=== PATIENT | female | born 1955 | race Two or more races ===

== ENCOUNTER 2021-11-29 06:08 | Observation (INO) ==
--- NOTE | 2021-10-30 11:30 | PAT Medication Instructions ---
Medication Instructions Date of Service October 30, 2021 Home Medications Culturelle Probiotic-Multivit 1 tab PO QAM ashwagandha root extract 300 mg capsule 300 mg PO QAM bupropion HCl 150 mg 24 hr tablet, extended release 150 mg PO QPM calcium 500 mg tablet 500 mg PO QAM cholecalciferol (vitamin D3) 125 mcg (5,000 unit) tablet (Vitamin D3) 125 mcg PO QAM coenzyme Q10 200 mg capsule (Co Q-10) 200 mg PO QAM conjugated estrogens 0.625 mg/gram vaginal cream (Premarin) 0.625 mg VAGINAL QPM cyanocobalamin (vitamin B-12) 1,000 mcg tablet (Vitamin B-12) 1,000 mcg PO QAM ezetimibe 10 mg tablet 10 mg PO HS fenofibrate nanocrystallized 145 mg tablet 145 mg PO HS fluconazole 200 mg tablet 200 mg PO QAM fluoxetine 20 mg tablet 20 mg PO HS gabapentin 300 mg tablet 300 mg PO HS hydrocodone 5 mg-acetaminophen 325 mg tablet 0.5 tab PO QID PRN hydroxyzine pamoate 25 mg capsule (Vistaril) 25 mg PO HS PRN lansoprazole 30 mg capsule,delayed release 30 mg PO HS meclizine 25 mg tablet 25 mg PO HS mv-min-vit C-ascorb Vs-Pnr-Sbu-herb #124 334 mg-1.7 mg chewable tablet (Airborne (ascorbate sodium)) 1 tab PO QAM vit 112-iron 3.33 mg-folate 0.33 [id number] chew tablet (Vitafol Gummies) 3 tab PO QAM trazodone 50 mg tablet 25 mg PO HS PRN vitamin C 500 mg-multivitamin with minerals chewable tablet (Emergen-C) 1 tab PO QAM STOP taking 2 weeks before surgery (or as soon as possible if surgery is within 2 weeks) ashwagandha root extract 300 mg capsule 300 mg PO QAM coenzyme Q10 200 mg capsule (Co Q-10) 200 mg PO QAM STOP taking 48 hours before surgery fenofibrate nanocrystallized 145 mg tablet 145 mg PO HS DO NOT take the morning of surgery Culturelle Probiotic-Multivit 1 tab PO QAM calcium 500 mg tablet 500 mg PO QAM cholecalciferol (vitamin D3) 125 mcg (5,000 unit) tablet (Vitamin D3) 125 mcg PO QAM cyanocobalamin (vitamin B-12) 1,000 mcg tablet (Vitamin B-12) 1,000 mcg PO QAM fluconazole 200 mg tablet 200 mg PO QAM Airborne (ascorbate sodium) 1 tab PO QAM Vitafol Gummies 3 tab PO QAM vitamin C 500 mg-multivitamin with minerals chewable tablet (Emergen-C) 1 tab PO QAM Take morning of surgery With a small sip of water, OTHERWISE NOTHING TO EAT OR DRINK AFTER MIDNIGHT: hydrocodone 5 mg-acetaminophen 325 mg tablet 0.5 tab PO QID PRN (okay to take up to 4 hours prior to surgery if needed) Take evening before surgery bupropion HCl 150 mg 24 hr tablet, extended release 150 mg PO QPM conjugated estrogens 0.625 mg/gram vaginal cream (Premarin) 0.625 mg VAGINAL QPM ezetimibe 10 mg tablet 10 mg PO HS fluoxetine 20 mg tablet 20 mg PO HS gabapentin 300 mg tablet 300 mg PO HS hydrocodone 5 mg-acetaminophen 325 mg tablet 0.5 tab PO QID PRN (if needed) hydroxyzine pamoate 25 mg capsule (Vistaril) 25 mg PO HS PRN (if needed) lansoprazole 30 mg capsule,delayed release 30 mg PO HS meclizine 25 mg tablet 25 mg PO HS trazodone 50 mg tablet 25 mg PO HS PRN (if needed) Other Notes If you have any questions please call us at [phone] or [phone] or [phone] or [phone]
--- NOTE | 2021-10-31 11:25 | Anesthesiology Consultation ---
Date of Service October 31, 2021 Assessment & Plan (1) Encounter for pre-operative examination: - COVID screening: Per assessment on 10/31/2021: Travel screen negative, no known COVID-19 positive contacts or current COVID-19 related symptoms in past 2 weeks. Surgeon arranging preop COVID testing, scheduled 11/27/2021. Awaiting results. Chart Review Chart Review: Acceptable Risk for Surgery and Patient seen in Pre Admission Testing Teaching & Discussion Pre-Anesthesia Teaching/Discussion Notes: Instructed NPO after midnight before surgery, except medications with 15 cc of water. Medication instructions provided according to the PAT guidelines. History Surgery Operation Date: 11/29/21 07:00 Proposed Procedures p Right Reverse Total Shoulder Arthroplasty - Arley Siegel, Height/Weight Height: 5 ft 2 in Weight: 71.9 kg Allergies Allergy/AdvReac Type Severity Reaction Status Date / Time No Known Allergies Allergy Verified 10/30/21 10:32 Medications Home Medications Medication Instructions Recorded Confirmed Last Taken Culturelle Probiotic-Multivit 1 tab PO QA 10/30/21 10/30/21 Unknown ashwagandha root extract 300 mg 300 mg PO QAM 10/30/21 10/30/21 Unknown capsule bupropion HCl 150 mg 24 hr tablet, 150 mg PO QPM 10/30/21 10/30/21 Unknown extended release calcium 500 mg tablet 500 mg PO QAM 10/30/21 10/30/21 Unknown cholecalciferol (vitamin D3) 125 125 mcg PO QAM 10/30/21 10/30/21 Unknown mcg (5,000 unit) tablet (Vitamin D3) coenzyme Q10 200 mg capsule (Co 200 mg PO QAM 10/30/21 10/30/21 Unknown Q-10) conjugated estrogens 0.625 mg/gram 0.625 mg VAGINAL QPM 10/30/21 10/30/21 Unknown vaginal cream (Premarin) cyanocobalamin (vitamin B-12) 1,000 mcg PO QAM 10/30/21 10/30/21 Unknown 1,000 mcg tablet (Vitamin B-12) ezetimibe 10 mg tablet 10 mg PO HS 10/30/21 10/30/21 Unknown fenofibrate nanocrystallized 145 145 mg PO 10/30/21 10/30/21 Unknown mg tablet fluconazole 200 mg tablet 200 mg PO QA 10/30/21 10/30/21 Unknown fluoxetine 20 mg tablet 20 mg PO HS 10/30/21 10/30/21 Unknown gabapentin 300 mg tablet 300 mg PO HS 10/30/21 10/30/21 Unknown hydrocodone 5 mg-acetaminophen 325 0.5 tab PO QID PRN 10/30/21 10/30/21 Unknown mg tablet hydroxyzine pamoate 25 mg capsule 25 mg PO HS PRN 10/30/21 10/30/21 Unknown (Vistaril) lansoprazole 30 mg capsule,delayed 30 mg PO HS 10/30/21 10/30/21 Unknown release meclizine 25 mg tablet 25 mg PO HS 10/30/21 10/30/21 Unknown mv-min-vit C-ascorb 1 tab PO QAM 10/30/21 10/30/21 Unknown Eb-Sfg-Ksk-herb #124 334 mg-1.7 mg chewable tablet (Airborne (ascorbate sodium)) vit 112-iron 3.33 3 tab PO QAM 10/30/21 10/30/21 Unknown mg-folate 0.33 [id number]-exv chew tablet (Vitafol Gummies) trazodone 50 mg tablet 25 mg PO HS PRN 10/30/21 10/30/21 Unknown vitamin C 500 mg-multivitamin with 1 tab PO QAM 10/30/21 10/30/21 Unknown minerals chewable tablet (Emergen-C) Past Medical History Medical History (Updated 10/31/21 @ 15:16 by Yumi Rodgers PA-C) Hx of non-Hodgkin's lymphoma 07/2019- s/p parotidectomy and radiation 10/2019, no chemo-[facility] oncology-last appt 07/2020, denies current Tx Hyperlipemia Patient denies h/o stroke, seizures, heart attack, heart failure, DM, HTN, blood clots or blood transfusions. Exercise / Class Metabolic Activity II 4-5 Yardwork/Stairs/Walk up hill (denies CP or SOB with 1 FOS) Past Family History Family History (Updated 10/31/21 @ 11:38 by Yumi Rodgers PA-C) Mother Diabetes Past Surgical History Surgical History H/O esophagogastroduodenoscopy History of lumbar surgery 1990 Hx of parotidectomy DUE TO NON HODGKINS LYMPHOMA S/P arthroscopy of left shoulder S/P colonoscopy S/P rotator cuff surgery RIGHT Past Anesthesia History No Hx of Anesthesia Complications and No Family Hx of Anesthesia Complications History of PONV No Hx of PONV and No Hx of Motion Sickness Social History Smoking Status: Never smoker Do You Dip or Chew Tobacco: No Hx Alcohol Use: Yes Alcohol type: beer and hard liquor alcohol intake frequency: a few times a week Hx Substance Use: Yes (SMOKES NIGHTLY-ADVISED) substance use type: marijuana Review of Systems Occasional reflux with citrus products/foods. Patient denies chest pain, shortness of breath, dyspnea on exertion, snoring, witnessed apneas, fever, chills, cough, wheezing, or palpitations. Physical Exam Vital Signs Vitals BP 143/95 P 65 TEMP 99.3 SP02 97% on RA RESP 17 Physical Full cervical extension range of motion without pain TMD 3.5 finger breaths Mallampati Score 2 Dentition: intact, several chipped teeth back upper left and lower right; denies missing and loose teeth, caps/crowns, implants or bridges Lungs: normal respiratory effort. Clear throughout to auscultation, no adventitious breath sounds Cardiac: regular rate and rhythm, no murmurs noted Carotid arteries: negative bruit bilat Lab Results Anesthesia Preop Results Results Anesthesia Widget: WBC 8.08 K/uL (4.8-10.8) 10/31/21 Hgb 12.1 g/dL (12.0-16.0) 10/31/21 Hct 37.3 % (37-47) 10/31/21 Plt 359 K/uL (130-400) 10/31/21 Na 139 mmol/L (136-145) 10/31/21 K 4.3 mmol/L (3.5-5.1) 10/31/21 Cl 104 mmol/L (98-107) 10/31/21 CO2 29 mmol/L (21-32) 10/31/21 BUN 21 mg/dl (6-23) 10/31/21 Creat 0.88 mg/dl (0.6-1.2) 10/31/21 Glucose Level 90 mg/dl (70-99(Fasting)) 10/31/21 PT 10.8 Seconds (9.0-12.0) 10/31/21 PTT 30.5 Seconds (21.0-31.0) 10/31/21 INR 1.0 (0.9-1.1) 10/31/21 Blood Type O Positive 10/31/21 Antibody Screen NEGATIVE 10/31/21 Testing Electrocardiogram Date: 10/31/21 Lung volumes are normal. Lungs are clear. There is no pneumothorax or pleural effusion. Cardiac size is normal. Mediastinal contours are normal. There is no evidence for pulmonary edema. IMPRESSION: No acute cardiopulmonary findings. Chest X-Ray Date: 10/31/21 NSR, rate 62 bpm
--- NOTE | 2021-11-28 12:06 | History & Physical Report ---
Date of Service November 28, 2021 Assessment & Plan (1) Rotator cuff tear, right: We will proceed with a right reverse shoulder arthroplasty. Postoperatively she will be placed in a sling and kept overnight in the hospital for postoperative medical management. She plans to have the hospital arrange physical therapy upon discharge. History of Present Illness Chief Complaint: Cuff tear arthropathy of the right shoulder. Primary Care Provider: NO PCP Carolyn is a pleasant 65-year-old female who underwent a right shoulder rotator cuff repair by Dr. Downs about a year ago. Unfortunately, she is not doing well. She still has a lot of pain in her shoulder. She had an MRI of her right shoulder back in July which showed a re-tear of the rotator cuff. She was thinking of living with it for a little bit and having a reverse shoulder arthroplasty done in the fall. Unfortunately, she has had an acute exacerbation of her right shoulder pain. She has difficulty time doing anything away from her body or up overhead. She cannot sleep at night. She has severe shoulder pain at this time.After failing conservative treatment, she has elected proceed with a right reverse shoulder arthroplasty.. Allergies Allergy/AdvReac Type Severity Reaction Status Date / Time No Known Allergies Allergy Verified 10/30/21 10:32 Home Medications Medication Instructions Recorded Confirmed Type Culturelle Probiotic-Multivit 1 tab PO QAM 10/30/21 10/30/21 History ashwagandha root extract 300 mg 300 mg PO QAM 10/30/21 10/30/21 History capsule bupropion HCl 150 mg 24 hr tablet, 150 mg PO QPM 10/30/21 10/30/21 History extended release calcium 500 mg tablet 500 mg PO QAM 10/30/21 10/30/21 History cholecalciferol (vitamin D3) 125 125 mcg PO QAM 10/30/21 10/30/21 History mcg (5,000 unit) tablet (Vitamin D3) coenzyme Q10 200 mg capsule (Co 200 mg PO QAM 10/30/21 10/30/21 History Q-10) conjugated estrogens 0.625 mg/gram 0.625 mg VAGINAL QPM 10/30/21 10/30/21 Hist ory vaginal cream (Premarin) cyanocobalamin (vitamin B-12) 1,000 mcg PO QAM 10/30/21 10/30/21 History 1,000 mcg tablet (Vitamin B-12) ezetimibe 10 mg tablet 10 mg PO HS 10/30/21 10/30/21 History fenofibrate nanocrystallized 145 145 mg PO HS 10/30/21 10/30/21 History mg tablet fluconazole 200 mg tablet 200 mg PO QAM 10/30/21 10/30/21 History fluoxetine 20 mg tablet 20 mg PO HS 10/30/21 10/30/21 History gabapentin 300 mg tablet 300 mg PO HS 10/30/21 10/30/21 History hydrocodone 5 mg-acetaminophen 325 0.5 tab PO QID PRN 10/30/21 10/30/21 History mg tablet hydroxyzine pamoate 25 mg capsule 25 mg PO HS PRN 10/30/21 10/30/21 History (Vistaril) lansoprazole 30 mg capsule,delayed 30 mg PO HS 10/30/21 10/30/21 History release meclizine 25 mg tablet 25 mg PO HS 10/30/21 10/30/21 History mv-min-vit C-ascorb 1 tab PO QAM 10/30/21 10/30/21 History Gm-Ect-Hqy-herb #124 334 mg-1.7 mg chewable tablet (Airborne (ascorbate sodium)) vit 112-iron 3.33 3 tab PO QAM 10/30/21 10/30/21 History mg-folate 0.33 [id number]-ytq chew tablet (Vitafol Gummies) trazodone 50 mg tablet 25 mg PO HS PRN 10/30/21 10/30/21 History vitamin C 500 mg-multivitamin with 1 tab PO QAM 10/30/21 10/30/21 History minerals chewable tablet (Emergen-C) Past Med/Surg History Medical History Hx of non-Hodgkin's lymphoma 07/2019- s/p parotidectomy and radiation 10/2019, no chemo-[facility] oncology-last appt 07/2020, denies current Tx Hyperlipemia Surgical History H/O esophagogastroduodenoscopy History of lumbar surgery 1990 Hx of parotidectomy DUE TO NON HODGKINS LYMPHOMA S/P arthroscopy of left shoulder S/P colonoscopy S/P rotator cuff surgery RIGHT Family History Mother Diabetes Social History Smoking Status: Never smoker Second Hand Exposure: No; Hx Alcohol Use: Yes Alcohol type: beer and hard liquor Hx Substance Use: Yes (SMOKES NIGHTLY-ADVISED) Preferred Language: Lithuanian Communication Ability: Effective Fashion Photographer Required: No Beliefs That Will Affect Care: None Current Living Situation: Significant Other Feels Safe at Home: Yes Assistive Devices: Glasses Review of Systems All systems reviewed & are unremarkable except as noted in HPI & below. Physical Exam On physical examination the right shoulder, she has about 80 degrees of elevation and 80 degrees of abduction. She has 4 out of 5 motor strength throughout. Constitutional WD/WN, vitals as above Eyes PERRL, conjunctivae normal, anicteric sclerae ENMT external ear and nose normal, oropharynx normal Neck trachea midline, no thyromegaly Respiratory normal respiratory effort Cardiovascular RRR, no murmur, no edema Gastrointestinal (Abdomen) normal bowel sounds, soft, nontender, no hepatosplenomegaly Psychiatric A+Ox3, euthymic affect Results & Data Results & Data Laboratory Results . Diagnostic Findings X-rays of the right shoulder show signs of progressive osteoarthritis of the right humeral head. MRI of the right shoulder shows a complete retear of the rotator cuff with osteoarthritis of the humeral head. PG Care Time/CCT Total # of Minutes Spent Total Time Spent with Patient: Total time spent is greater than 50% in coordination of care (as documented) at patient's floor/unit and/or counseling patient: Coding Level of Care Code None Diagnoses Rotator cuff tear, right M75.101
[~2021-11-29 06:08] MED LIST: ACETAMINOPHEN 500 MG TAB PO SCH; GABAPENTIN 300 MG CAP PO SCH; Ketorolac (*for OR use only*) 30 MG, dexAMETHasone 4 MG, KETAMINE HCL (**OR use only) 1... INFIL SCH; LR 15ML/HR IV SCH; LR 60ML/HR IV SCH; TRANEXAMIC ACID 1,000 MG **IV Intra-op IV SCH; TRANEXAMIC ACID 1,000 MG **IV Pre-op IV SCH; ceFAZolin 2000MG 2,000 MG/15 ML SYR IV SCH; dexAMETHasone 4 MG TAB PO SCH
--- NOTE | 2021-11-29 06:24 | History & Physical Bridge Note ---
Date of Service November 29, 2021 History & Physical Bridge Note I have examined the patient, reviewed the History & Physical and in the interval since the performance of the History & Physical I have noted the following changes of clinical significance: no changes noted
[2021-11-29] MEDS ORDERED: BUPIVACAINE 0.25% 30 ML VIAL ONE (07:33)
[2021-11-29] MEDS ORDERED: MIDAZOLAM HCL 1 MG/ML 2ML VIAL ONE (08:25)
[2021-11-29] MEDS ORDERED: ONDANSETRON INJ 2 MG/ML 2 ML VIAL IV PRN ×2 (08:48→11:48)
[2021-11-29] MEDS ORDERED: fentaNYL citrate 100 MCG/2 ML VIAL IV PRN (08:48)
[2021-11-29] MEDS ORDERED: ePHEDrine sulfate 50 MG/ML AMP IV PRN (08:48)
[2021-11-29] MEDS ORDERED: ATROPINE SULFATE 0.1 MG/ML 10ML SYR IV PRN (08:48)
[2021-11-29] MEDS ORDERED: ORTHO JOINT ANESTHETIC ONE (09:03)
[2021-11-29] MEDS ORDERED: fentaNYL citrate 100 MCG/2 ML VIAL ONE (09:20)
[2021-11-29] MEDS ORDERED: PROPOFOL IV EMULSION 10 MG/ML 20 ML VIAL IV ONE (09:46)
[2021-11-29] MEDS ORDERED: LIDOCAINE 2% MPF LOCAL 5 ML VIAL INFIL ONE (09:46)
[2021-11-29] MEDS ORDERED: ePHEDrine sulfate 50 MG/ML AMP ONE (09:46)
--- NOTE | 2021-11-29 10:20 | Operative Report ---
PG Post Operative Report Pre & Post Diagnosis Operation Date: 11/29/21 08:50 Pre-Op Diagnosis: Cuff tear arthropathy of the right shoulder with tendinopathy long head of biceps tendon Post-Op Diagnosis: Cuff tear arthropathy of the right shoulder with tendinopathy long head of the biceps tendon I identified the patient and participated in the time-out.: Yes Procedure Operation Date: 11/29/21 08:50 Actual Procedures p Right Reverse Total Shoulder Arthroplasty(Right) with open biceps tenodesis as a distinct and separate procedure (modifier 59)- Arley Siegel DO Surgeon Arley Siegel DO Cost Estimating Engineer Arley Jacob PAC Estimated Blood Loss 150 Findings Consistent with Post-Op Diagnosis Specimens Right humeral head Complications none Disposition Disposition: Recovery Room Description of Procedure A CPT code modifier 59: The long head of the biceps tendon was enlarged and inflamed consistent with tendinopathy. A tenodesis was opted. This was a separate and distinct portion of the procedure. For these reasons, a CPT code modifier 59 will be added to this case. Implants used: I used a Biomet Comprehensive reverse total shoulder arthroplasty system with a size 12 press fit micro humeral stem, a standard humeral tray and a standard humeral bearing, a 25 mm small augment baseplate with a 6.5 mm central screw and superior and inferior locking screws, and a size 36 mm eccentric glenosphere. Carolyn arrived at [facility] for the above procedure. She was seen in the preoperative holding area and the operative extremity was identified and signed. She was given a preoperative antibiotic, TXA, and an interscalene nerve block. She was taken back to the operating room, laid on table in supine position, and put under general anesthesia. She was then put into the beachchair position. The shoulder was then prepped and draped in sterile fashion. A timeout was done and the patient and the operative extremity was properly identified. A deltopectoral approach was used. Dissection was taken down through the fascia and the deltoid was retracted laterally and the conjoined tendon was retracted medially. The anterior shoulder was exposed. The biceps groove was opened up and the biceps tendon was examined extensively. The biceps tendon demonstrated enlargement and inflammatory changes consistent with longstanding inflammation in the context of osteoarthritis and cuff arthropathy. The long head of the biceps tendon was then tenodesed to the upper border of the pectoralis major. This was a separate and distinct portion of the procedure. The subscapularis was then directly released off the lesser tuberosity with a peel technique. The inferior capsule was released and the humeral head was dislocated. A canal finding reamer was sent down the center of the humeral canal. Sequential reaming up to a size 12 reamer was done. Off that reamer, a proximal humeral resection guide was placed. The proximal humerus was resected at 135 of inclination and 25 of retroversion. Osteophytes were then removed and the glenoid was exposed. Time was spent doing a complete capsular and labral release. The glenoid guide was then placed in the inferior aspect of the glenoid. A 3.2 mm Steinmann pin was then placed into the glenoid vault at 10 of inclination. The glenoid baseplate was then reamed. The final size 25 mm small augment baseplate was then impacted in the place. A 6.5 mm central screw was then placed followed by superior and inferior locking screws. A 36 mm eccentric glenosphere was then impacted into place. Surrounding soft tissues were then injected with 100 cc an orthopedic pain control cocktail. The proximal humerus was then exposed. Sequential broaching of the humerus up to a size 12 broach was done. Off that broach a standard humeral tray was trialed. The shoulder was then reduced, brought through a full range of motion, and felt to be stable. The shoulder was then dislocated and the broach was removed. The final size 12 micro press-fit humeral stem was then impacted into place. A standard humeral bearing was then snapped onto a standard humeral tray. The humeral tray was then impacted onto the humeral stem. The shoulder was once again reduced, brought through a full range of motion, and felt to be stable. The subscapularis was then tenodesed back to the lesser tuberosity with transosseous FiberWire sutures and side to side sutures with the arm in 45 of external rotation. A dilute betadyne lavage was then done for 3 minutes. The joint was then irrigated with normal saline solution. Hemostasis was obtained. The inter doreen was closed with 2-0 Vicryl suture. The skin was then closed with 2-0 Vicryl and jammie. A Silverlon dressing was placed and the arm was rested in a regular arm sling. She was then extubated and transferred to a hospital bed. She taken to the postanesthesia care unit in stable condition. She tolerated the procedure well. Arley Jacob PA-C, was present for the entire procedure. He was critical for patient positioning, prepping, draping, retraction exposure, wound closure and application of sterile dressing. I attest to the content of the Intraoperative Record and any orders documented therein. Any exceptions are noted below.
--- NOTE | 2021-11-29 11:31 | XRay Report ---
XR shoulder RT min 2V routine HISTORY: 66 years-old Female Post shoulder surgery right shoulder total joint arthroplasty COMPARISON: None TECHNIQUE: 2 views of the right shoulder FINDINGS: Reverse right shoulder total joint arthroplasty. Overlying skin jammie are noted along with expected postoperative soft tissue swelling with deep tissue air. Moderate AC joint osteoarthritis. No acute fracture, dislocation or unexpected opaque foreign body. Imaged lung gallego appear clear. IMPRESSION: Right shoulder total joint arthroplasty with expected postoperative changes. ACT 112: Negative or not required by law. The above report was generated using voice recognition software. It may contain grammatical, syntax o r spelling errors. Electronically signed by: Jean-Claude Zaldivar M.D. 11/29/2021 11:30 AM
[2021-11-29] MEDS ORDERED: HYDROmorphone INJ 0.5 MG/0.5 ML SYR IV PRN (11:48)
[2021-11-29] MEDS ORDERED: METOCLOPRAMIDE HCL INJ 5 MG/ML 2 ML VIAL IV PRN (11:48)
[2021-11-29] MEDS ORDERED: traZODone HCL 50 MG TAB PO PRN (11:48)
[2021-11-29] MEDS ORDERED: hydrOXYzine HCl 25 MG TAB PO PRN (11:48)
[2021-11-29] MEDS ORDERED: oxyCODONE HCL IR 5 MG TAB (IMMEDIATE RELEASE) PO PRN (11:48)
[2021-11-29] MEDS ORDERED: NALOXONE HCL 0.4 MG/1 ML VIAL/CARP IV PRN (11:48)
[2021-11-29] MEDS ORDERED: bisacodyL 10 MG SUPP PR PRN (11:48)
[2021-11-29] MEDS ORDERED: MAGNESIUM HYDROXIDE SUSP 30 ML UDC PO PRN (11:48)
--- NOTE | 2021-11-29 13:34 | Anesthesiology Progress Note ---
Date of Service November 29, 2021 Anesthesia Post Procedure Vital Signs Vital Signs: Temp Pulse Pulse Resp BP Pulse Ox 11/29/21 13:25 36.6 C 85 14 101/65 92 11/29/21 12:30 36.6 C 82 18 113/71 92 11/29/21 11:49 36.4 C L 76 16 118/82 92 11/29/21 11:24 36.7 C 75 16 117/75 91 11/29/21 11:05 36.3 C L 74 16 121/72 96 11/29/21 10:55 75 16 133/67 95 11/29/21 10:45 74 16 119/74 97 11/29/21 10:36 36.3 C L 80 16 133/73 98 11/29/21 06:35 37 C 65 18 128/75 96 Transfer of Care Handoff Completed per policy Notes Mental Status: alert / awake / arousable Patient Amnestic to Procedure: Yes Nausea / Vomiting: adequately controlled Pain: adequately controlled Airway Patency, RR, SpO2: stable & adequate BP & HR: stable & adequate Hydration State: stable & adequate Anesthetic Complications: no major complications apparent Notes: block working well in pacu
[2021-11-29] MEDS: SODIUM CHLORIDE 0.9% 1000ML 1,000 ML IV SCH ×2 (14:15→22:54)
[2021-11-29] MEDS: ACETAMINOPHEN 500 MG TAB PO SCH ×2 (14:23→21:40)
[2021-11-29] MEDS: KETOROLAC 30 MG/ML VIAL IV SCH ×2 (14:23→19:04)
[2021-11-29] MEDS: ceFAZolin 2000MG 2,000 MG/15 ML SYR IV SCH (17:15)
[2021-11-29] MEDS: DOCUSATE SODIUM 100 MG CAP PO SCH (20:10)
[2021-11-29] MEDS ORDERED: PANTOprazole 40 MG TAB PO SCH (21:00)
[2021-11-29] MEDS ORDERED: MECLIZINE HCL 25 MG TAB PO SCH (21:00)
[2021-11-29] MEDS ORDERED: buPROPion XL 150 MG TABCR PO SCH (21:00)
[2021-11-29] MEDS ORDERED: FENOFIBRATE NANOCRYSTALLIZED 145 MG TABLET PO SCH (21:00)
[2021-11-29] MEDS ORDERED: FLUoxetine HCL 20 MG CAP PO SCH (21:00)
[2021-11-29] MEDS ORDERED: GABAPENTIN 300 MG CAP PO SCH (21:00)
[2021-11-29] MEDS ORDERED: PREMARIN VAG CRM 14 APPLN/30 GM TUBE PV SCH (21:00)
[2021-11-29] MEDS ORDERED: SENNA 8.6 MG TAB PO SCH (21:00)
[2021-11-29] MEDS ORDERED: EZETIMIBE 10 MG TABLET PO SCH (21:00)
[2021-11-30] MEDS: ceFAZolin 2000MG 2,000 MG/15 ML SYR IV SCH (00:06)
[2021-11-30] MEDS: KETOROLAC 30 MG/ML VIAL IV SCH ×2 (00:06→05:07)
[2021-11-30] MEDS: ACETAMINOPHEN 500 MG TAB PO SCH (05:07)
--- NOTE | 2021-11-30 07:25 | Orthopedic Progress Note ---
Date of Service November 30, 2021 Assessment & Plan (1) Status post reverse total replacement of right shoulder: Overall she is doing very well. She is having much pain in the right shoulder. She will be seen by physical therapy today for ambulation and range of motion exercises. She can be discharged home later today. She will follow- up with orthopedics in 2 weeks. Jerry Leon was seen and examined at bedside this morning. Overall she is doing very well. She denies any pain in the right shoulder. She was able to get some sleep last night. She has no complaints.. Review of Systems All systems reviewed & are unremarkable except as noted in HPI & below. Physical Exam On physical examination of the right shoulder, the dressing is clean and dry. She is wearing her sling as instructed. She has motion of her hand and her wrist. Results & Data Results & Data Laboratory Results . Diagnostic Findings Postoperative x-rays of the right shoulder show the prosthesis to be in anatomic alignment without any evidence of fracture, desiccation, or loosening.. PG Care Time/CCT Total # of Minutes Spent Total Time Spent with Patient: Total time spent is greater than 50% in coordination of care (as documented) at patient's floor/unit and/or counseling patient: Coding Level of Care Code 17445 Post Operative Follow-Up Diagnoses Status post reverse total replacement of right shoulder Z96.611
--- NOTE | 2021-11-30 07:26 | Discharge Summary ---
Date of Service November 30, 2021 Admission HPI (Per Admitting) Carolyn is a pleasant 65-year-old female who underwent a right shoulder rotator cuff repair by Dr. Downs about a year ago. Unfortunately, she is not doing well. She still has a lot of pain in her shoulder. She had an MRI of her right shoulder back in July which showed a re-tear of the rotator cuff. She was thinking of living with it for a little bit and having a reverse shoulder arthroplasty done in the fall. Unfortunately, she has had an acute exacerbation of her right shoulder pain. She has difficulty time doing anything away from her body or up overhead. She cannot sleep at night. She has severe shoulder pain at this time.After failing conservative treatment, she has elected proceed with a right reverse shoulder arthroplasty.. Admission Exam (Per Admitting) On physical examination the right shoulder, she has about 80 degrees of elevation and 80 degrees of abduction. She has 4 out of 5 motor strength throughout. Principal Diagnosis Same as "Discharge Diagnosis" noted below under Discharge Instructions. Discharge Exam On physical examination of the right shoulder, the dressing is clean and dry. She is wearing her sling as instructed. She has motion of her hand and her wrist. Discharge Data Procedures Performed Operation Date: 11/29/21 08:50 Actual Procedures p Right Reverse Total Shoulder Arthroplasty(Right) - Arley Siegel DO Ordered Studies 11/29/21 05:00 US - OR guided needle placemen Routine Hospital Course (1) Status post reverse total replacement of right shoulder: On November 29, 2021 Carolyn arrived at [facility] and underwent a right reverse shoulder replacement without complication. She had a general anesthetic and a right interscalene nerve block. Postoperatively she was placed in a sling and transferred to the general orthopedic floors. Her hospital course was uneventful. On postop day #1, her vital signs were stable and her pain was well controlled. She was able to participate well with physical therapy doing ambulation and range of motion exercises. She was then discharged home. She will follow-up with orthopedics in 2 weeks. PG Care Time/CCT Total # of Minutes Spent Total Time Spent with Patient: Total time spent is greater than 50% in coordination of care (as documented) at patient's floor/unit and/or counseling patient: Discharge Plan Discharge Items Patient Disposition: Home - Home Health Services Reason For Visit: DJD Right Shoulder Discharge Diagnosis: Status post right reverse shoulder replacement Activity: As commented below Non-emergency contact: Surgeon Call non-emergency contact if: your wound has increased redness and your wound has increased drainage Follow-up/Referrals: Kenyon Chaudhari M.D. [Primary Care Provider] - Diet: Regular Addtl Attending Provider Instructions: Activity and Therapy Recommendations: * If you are using [facility] then therapy will be provided at your home until they feel you have accomplished all of your goals. * If you are using [facility] then Physical Therapy will be provided until they feel you are ready to start Outpatient Physical Therapy. * If you are not using home therapy then Outpatient Physical Therapy should start about 3-5 days from your day of surgery. Therapy will last about 8-12 weeks * Wear your sling for 3 weeks, unless otherwise instructed. You may remove your sling to shower and to dress, but otherwise, you should be in your sling at all times, including while sleeping * The shoulder replacement is very stable and you can use your hand while in the sling * You were shown a series of exercises in the hospital. Do these exercises daily including the exercises you were shown in physical therapy. Medications: * Narcotic You will likely be sent home from the hospital with a prescription for the narcotic pain medication that worked best throughout your stay. * Other medications may be prescribed for specific circumstances. If you have any questions, please call the office at . * Resume previous home medications unless otherwise instructed Dressing Care: Leave the Silverlon dressing in place for 7 days. After 7 days you may remove the dressing. If the incision is not draining then you may leave the jammie open to air. If there is a little bit of drainage or if the jammie are getting stuck on your clothing then cover the incision with a dry dressing. The jammie will be removed at your 2 week follow-up appointment. Showering: You may shower with the Silverlon dressing in place. Do not let the shower spray hit the dressing directly. Pat the Silverlon dressing dry. If the dressing becomes wet underneath, then simply remove the dressing. Keep the incision dry until you are 7 days out from the day of surgery. After 7 days you may remove the Silverlon dressing and shower with the jammie exposed. Let soapy water run over the jammie and pat them dry. Do not scrub or soak the incision. Things To Watch For: * Drainage from the incision site that occurs more than one week after your surgery. * Increased redness at the incision site. * Fever above 102 degrees Fahrenheit. * Unusual chest pain or shortness of breath. * Call [facility] at with any of the above problems Follow-Up Visit: Follow-up with Dr. Siegel's PA (Arley Jcaob) 2-3 weeks after your day of surgery. He will remove your jammie and answer any questions. If you have any additional questions or concerns, Dr Siegel is usually in the office at the same time and will be available An appointment was probably scheduled when you signed-up for surgery in the office. If you have any questions call More detailed instructions as well as Frequently Asked Questions were provided in a folder by our office when you signed-up for surgery. Please review these instructions when you get home. If you have any further questions or concerns, please feel free to call the office at [phone] Pending Studies at Discharge: No Stand-Alone Forms: [facility], Smoking Cessation Medications and DC Order Prescriptions: Continued trazodone 50 mg Tablet 25 mg PO HS PRN (Reason: Sleep) RF: 0 fluconazole 200 mg Tablet 200 mg PO QAM RF: 0 calcium 500 mg Tablet 500 mg PO QAM RF: 0 cyanocobalamin (vitamin B-12) [Vitamin B-12] 1,000 mcg Tablet 1,000 mcg PO QAM RF: 0 meclizine 25 mg Tablet 25 mg PO HS RF: 0 fluoxetine 20 mg Tablet 20 mg PO HS RF: 0 Premarin 0.625 mg/gram Cream 0.625 mg VAGINAL QPM RF: 0 lansoprazole 30 mg Capsule,Delayed Release(Dr/Ec) 30 mg PO HS RF: 0 hydroxyzine pamoate [Vistaril] 25 mg Capsule 25 mg PO HS PRN (Reason: Sleep) RF: 0 ezetimibe [Zetia] 10 mg Tablet 10 mg PO HS RF: 0 bupropion HCl 150 mg Tablet Extended Release 24 Hr 150 mg PO QPM RF: 0 gabapentin 300 mg Tablet 300 mg PO HS RF: 0 coenzyme Q10 [Co Q-10] 200 mg Capsule 200 mg PO QAM RF: 0 fenofibrate nanocrystallized 145 mg Tablet 145 mg PO HS RF: 0 cholecalciferol (vitamin D3) [Vitamin D3] 125 mcg (5,000 unit) Tablet 125 mcg PO QAM RF: 0 Airborne (ascorbate sodium) 334-1.7 mg Tablet,Chewable 1 tab PO QAM RF: 0 Vitafol Gummies 3.33 mg iron- 0.33 mg Tablet,Chewable 3 tab PO QAM RF: 0 Emergen-C 500 mg Tablet,Chewable 1 tab PO QAM RF: 0 ashwagandha root extract 300 mg Capsule 300 mg PO QAM RF: 0 Culturelle Probiotic-Multivit 1 tab PO QAM RF: 0 hydrocodone-acetaminophen 5-325 mg Tablet 0.5 tab PO QID PRN (Reason: Pain) Qty: 30 RF: 0 Discharge Orders: Discharge Order (Routine); Ordered 11/30/21 Ordered By: Arley Siegel Admission Data Admit Date/Time: 11/29/21 10:33 Attending Provider: Arley Siegel Admit Provider: Arley Siegel Primary Care Provider: Kneyon Chaudhari
[2021-11-30] MEDS ORDERED: dexAMETHasone 4 MG TAB PO SCH (08:00)
[2021-11-30] MEDS: DOCUSATE SODIUM 100 MG CAP PO SCH (08:05)
[2021-11-30] MEDS ORDERED: MULTIVITAMIN TAB PO SCH (09:00)
[2021-11-30] MEDS ORDERED: FLUCONAZOLE 100 MG TAB PO SCH (09:00)
[2021-11-30] MEDS ORDERED: [UNRECOGNIZED DRUG - OTHER] PO SCH (09:00)
[2021-11-30] MEDS ORDERED: IRON PO SCH (09:00)
== END 2021-11-30 11:20 | disposition home or self-care (01) ==
LOC: 3E 06:08 → ASU 06:08